=== PATIENT | female | born 1945 | race Caucasian/White ===

== ENCOUNTER 2018-10-08 15:36 | Emergency (ER) | payer BC, MEDICARE ==
[~2018-10-08] VITALS: Ht 167.6 cm; Wt 95.9 kg
[2018-10-08] MEDS ORDERED: PANT40TA3 PO (16:03)
[2018-10-08] MEDS ORDERED: GLIM2TAB29 PO (16:03)
[2018-10-08] MEDS ORDERED: ATOR1TAB21 PO (16:03)
[2018-10-08] MEDS ORDERED: WARF4TAB51 PO (16:03)
[2018-10-08] MEDS ORDERED: GLIM2TAB PO (16:03)
[2018-10-08] MEDS ORDERED: ROPI0.5T PO (16:03)
[2018-10-08] MEDS ORDERED: ALLO100T PO (16:03)
[2018-10-08] MEDS ORDERED: TRIM100T8 PO (16:03)
[2018-10-08] MEDS ORDERED: VENL75TA2 PO (16:03)
[2018-10-08] MEDS ORDERED: BUPR150T5 PO (16:03)
[2018-10-08] MEDS ORDERED: ATEN50TA2 PO (16:03)
[2018-10-08] MEDS ORDERED: VESI10TA2 PO (16:03)
[2018-10-08] MEDS ORDERED: LETR2.5T2 PO (16:03)
[2018-10-08] MEDS ORDERED: COUM2TAB22 PO (16:05)
[2018-10-08] MEDS ORDERED: VITAD1000T PO (16:05)
[2018-10-08] MEDS ORDERED: [UNRECOGNIZED DRUG - CODE] PO (16:05)
[2018-10-08] MEDS ORDERED: ZYRTTAB8 PO (16:05)
--- NOTE | 2018-10-08 16:12 | REP ---
CT Head without contrast HISTORY: Fall COMPARISON: None Areas of decreased attenuation are present in the periventricular white matter. This represents small-vessel ischemic disease. here is no intraparenchymal hemorrhage, acute infarct, mass or midline shift. The ventricular system is normal in appearance. The cortical sulci are dilated consistent with minimal volume loss. There is no extra cerebral collection. There is no fracture. Minimal mucosal thickening is present in the left sphenoid sinus. A subgaleal hematoma is present overlying the frontal bones. IMPRESSION: 1. Small vessel ischemic disease. 2. Minimal volume loss. Electronically Signed by Kristopher Pradhan MD 10/08/2018 04:04 P
--- NOTE | 2018-10-08 16:25 | REP ---
CT cervical spine without contrast HISTORY: Fall COMPARISON: None There is no acute fracture. A disc bulge is present at the C4-5 level. A disc bulge with associated osteophyte formation is present at the C5-6 level. There is minimal narrowing of the spinal canal. Uncinate process and/or facet hypertrophy are present at the C2-3 through C6-7 levels. These findings produce minimal to mild narrowing of the neural foramina. There are 2 mm of anterior subluxation of C3-4. The C3-4 through C7-T1 intervertebral discs are decreased in height consistent with disc degeneration. IMPRESSION: 1. There is no acute fracture. 2. There is cervical spondylosis at the C2-3 through C7-T1 levels. Electronically Signed by Kristopher Pradhan MD 10/08/2018 04:17 P
--- NOTE | 2018-10-08 17:12 | REP ---
Chest one-view HISTORY: Injury Comparison: None The lungs are clear. The heart is normal in size. The pulmonary vasculature is normal in appearance. An Afsmbw-[id number]-Wmvl catheter is present. Impression: No acute disease. Electronically Signed by Kristopher Pradhan MD 10/08/2018 05:03 P
--- NOTE | 2018-10-08 17:13 | REP ---
Left elbow for views History: Injury The patient is status post radial humeral arthroplasty . The patient is status post ORIF of a fracture of the proximal ulna. Metal hardware is present. There is an acute nondisplaced fracture of the distal humerus. There is no dislocation. Impression: Nondisplaced fracture of the distal humerus. Electronically Signed by Kristopher Pradhan MD 10/08/2018 05:04 P
[2018-10-08 17:25] LABS: BASO % 0.3 % (0.0-1.0); EOS # 0.2 10^3/uL (0.0-0.50); EOS % 1.7 % (0.0-3.0); HEMATOCRIT 38.6 % (36.0-47.0); HEMOGLOBIN 12.3 g/dl (12.0-15.5); LYMPH # 1.7 10^3/uL (1.5-4.5); LYMPH % 12.8 % (24.0-44.0); MEAN CORPUSCULAR HEMOGLOBIN 29.6 pg (27.0-33.0); MEAN CORPUSCULAR HGB CONC 31.9 g/dl (32.0-36.5); MONO # 0.6 10^3/uL (0.0-0.8); MONO % 4.8 % (0.0-5.0); NEUTROPHILS # 10.7 10^3/uL (1.8-7.7); PLATELET COUNT, AUTOMATED 276 10^3/uL (150-450); RED BLOOD COUNT 4.15 10^6/uL (4.00-5.40); WHITE BLOOD COUNT 13.3 10^3/uL (4.0-10.0)
[2018-10-08] MEDS ORDERED: MORPHINE 2 MG/ML 1ML SYRINGE (J2270) IV ONE ×2 (17:30→18:45)
[2018-10-08 17:34] LABS: INR 1.99
[2018-10-08 17:35] LABS: PARTIAL THROMBOPLASTIN TIME 28.6 SECONDS (25.4-37.6)
[2018-10-08] MEDS ORDERED: ONDANSETRON 4MG/2ML VIAL (J2405) IV ONE (17:45)
[2018-10-08 18:16] LABS: BLOOD UREA NITROGEN 44 MG/DL (7-18); CALCIUM LEVEL 9.5 MG/DL (8.8-10.2); CARBON DIOXIDE LEVEL 30 MEQ/L (21-32); CHLORIDE LEVEL 106 MEQ/L (98-107); CREATININE FOR GFR 1.45 MG/DL (0.55-1.30); GLOMERULAR FILTRATION RATE 37.7 (>39); GLUCOSE, FASTING 153 MG/DL (70-100); POTASSIUM SERUM 4.5 MEQ/L (3.5-5.1); SODIUM LEVEL 142 MEQ/L (136-145)
[2018-10-08 18:42] LABS: ALBUMIN 3.5 GM/DL (3.2-5.2); ALT/SGPT 28 U/L (12-78); BILIRUBIN,DIRECT < 0.1 MG/DL (0.0-0.2); BILIRUBIN,TOTAL 0.3 MG/DL (0.2-1.0); TOTAL PROTEIN 6.9 GM/DL (6.4-8.2)
--- NOTE | 2018-10-08 18:42 | REP ---
LEFT KNEE: Four views of the left knee were performed and demonstrate no fracture or dislocation. There is a total knee prosthesis in good position with no abnormal adjacent lucency. IMPRESSION: No acute fracture or dislocation. Electronically Signed by Lemuel Balbuena MD 10/08/2018 07:59 P
[2018-10-08] MEDS ORDERED: PERC5TAB12 PO ×2 (19:40→20:10)
[2018-10-08] MEDS ORDERED: PERCOCET 5MG/325MG TAB PO ONE (19:45)
[2018-10-08] MEDS ORDERED: NORCO 5/325MG TABLET (BULK FOR ED) PO ONE (19:45)
--- NOTE | 2018-10-08 19:54 | REPVR ---
EXAM: CT Left Upper Extremity Without Contrast EXAM DATE/TIME: 10/08/2018 5:46 PM CLINICAL HISTORY: 72 years old, female; Injury or trauma; Fall; Initial encounter; Fracture, traumatic injury; Closed fracture; Humerus; Left; Prior surgery; Surgery date: 6+ months; Surgery type: Cadaver bone; Additional info: Fractured humerus on x-ray TECHNIQUE: Imaging protocol: CT of the Left upper extremity without intravenous contrast was performed. Coronal and sagittal reformatted images were created and reviewed. Radiation optimization: All CT scans at this facility use at least one of these dose optimization techniques: automated exposure control; mA and/or kV adjustment per patient size (includes targeted exams where dose is matched to clinical indication); or iterative reconstruction. COMPARISON: CR Elbow, complete LEFT 10/08/2018 4:31 PM FINDINGS: Bones/joints: There is a subcondylar fracture of the distal humerus, with displacement of fracture fragments. Postoperative changes are identified with internal fixation of the proximal ulna with a surgical prosthesis involving the proximal radius/radiocapitellar joint. Osteopenia. There is abnormal morphology and hyperostosis involving the proximal ulna and coronoid process, with an old fracture. There is cortical irregularity/spurring of the lateral epicondyle. Streaking artifact from surgical hardware significantly limits this study. Soft tissues: CT is suboptimal for evaluation of ligaments and tendons. Soft tissue swelling is visualized, most significant posterior to the distal humerus. IMPRESSION: 1. There is a subcondylar fracture of the distal humerus, with displacement of fracture fragments. 2. Postoperative changes noted above. 3. There is abnormal morphology and hyperostosis involving the proximal ulna and coronoid process, with an old fracture. 4. Soft tissue swelling is visualized, most significant posterior to the distal humerus. 5. Additional findings described above. Electronically signed by: Juan Espinal On 10/08/2018 19:54:00 PM
--- NOTE | 2018-10-08 20:08 | ER ---
DATE OF CONSULTATION: 10/08/2018 CONSULTING PHYSICIAN: Dr. Lucie Balbuena REASON FOR CONSULTATION: Left distal humerus fracture. CHIEF COMPLAINT: Left elbow pain. HISTORY OF PRESENT ILLNESS: Mary Begum is a 72-year-old bozev-ckdw-yminjlit female who sustained a mechanical fall to an outstretched left upper extremity earlier today resulting in immediate left elbow pain and inability to move her elbow. She also fell onto her face resulting in a scalp hematoma and some orbital swelling. She had radiographs that demonstrated a distal humerus fracture around previous hardware on the elbow and orthopedics was consulted for definitive management. The patient localized pain to the left elbow. She denied any numbness, tingling or burning sensations about the left upper extremity and had no other acute complaints. PAST MEDICAL HISTORY: Significant for deep vein thrombosis (DVT), pulmonary embolism (PE), hypertension, gout, gastroesophageal reflux disease (GERD), mood disorder, diabetes. MEDICATIONS: Allopurinol, vitamin C supplementation, atenolol, atorvastatin, bupropion, cetirizine, glimepiride, letrozole, pantoprazole, allopurinol, VESIcare, venlafaxine, vitamin D, trimethoprim and Coumadin. ALLERGIES: SULFA. PAST SURGICAL HISTORY: Significant for bilateral knee replacement, was significant for left elbow ulna open reduction internal fixation (ORIF) and radial head replacement 8 years ago. She also had a left distal radius open reduction internal fixation. She also had prior hysterectomy for uterine cancer. FAMILY HISTORY: Noncontributory. SOCIAL HISTORY: The patient lives with in [place], [place]. She does not smoke, drink, or use illicit drugs. REVIEW OF SYSTEMS: A 14-point review of systems was reviewed and is unremarkable. PHYSICAL EXAMINATION: Vital signs: Temperature 97, heart rate 104, respiratory rate 18, blood pressure 175/75, oxygen saturation 99% on room air. General: Overweight female, appears stated age, in no acute distress. HEENT: She had evidence of a small scalp laceration and a scalp hematoma with swelling around the orbit, no visual disturbances. Cardiovascular: She has a regular rate and rhythm and 2+ radial pulse, brisk capillary refill all digits left upper extremity. Respiratory: Nonlabored breathing. Neurologic: She is awake, alert and oriented to person, place and time. She had intact sensory and motor function in her left upper extremity radial, median, ulnar, anterior interosseous nerve (AIN) and posterior interosseous nerve (PIN) distributions. Musculoskeletal: Focused physical exam of the left elbow demonstrates no open wounds or abrasions. She is maximally tender about the distal humerus. She has no tenderness about the wrist, forearm or shoulder. She is able to independently flex and extend at the wrist and all digits of the left upper extremity, voluntary elbow motion is limited secondary to pain. RADIOGRAPHS: Plain radiographs and CT scan of the left elbow demonstrate previous ulnar ORIF and radial head replacement hardware that appear to be intact. There is what appears to be an extra-articular distal humerus fracture with displacement. CT scan 2D and 3-D reconstruction images were limited to evaluate for intra-articular extension secondary to metal artifact from prior implants. ASSESSMENT: This is a 72-year-old female with significant prior surgical history of proximal ulna and ORIF and radial head replacement with a displaced distal humerus fracture that is closed. PLAN: I discussed with the patient the nature of her injury; this likely will require open reduction internal fixation. However, given this is a closed injury, she has an INR of 2, may require risk stratification prior to surgery, and the patient has an established relationship with an orthopedic surgeon in [place]. The patient desires to follow up with her surgeon in [place] for definitive management. She was placed into a well-padded posterior splint and provided with her imaging. She will follow up this week as an outpatient with her established surgeon in [place], but she may follow up with us on an as needed basis for definitive management. The patient expressed understanding and agreed with the plan. All questions were answered. ANNA
[2018-10-08 20:14] VITALS: BP 172/98
--- NOTE | 2018-10-09 00:11 | ECGEPIP ---
Stationary ECG Study [facility] - ED Test Date: 2018-10-08 Pat Name: OLIVIER CARTER Department: Room: - Gender: F Legal Services Professional: lisbeth : 1945 Requested By: Lucie Santillan Order Number: [id number] Reading MD: Marvel Galindo Measurements Intervals [place] Rate: 104 P: 53 RI: 211 QRS: 12 QRSD: 93 T: 55 QT: 358 QTc: 471 Interpretive Statements SINUS TACHYCARDIA WITH FIRST DEGREE AV BLOCK Delayed anterior R wave progression Comparison tracing not on file Electronically Signed On 10-09-2018 0:11:02 EDT by Marvel Galindo
== END 2018-10-08 20:16 | disposition home or self-care (01) ==
LOC: EDBD 15:36 → M ED 15:36
DX: S09.90XA Unspecified injury of head, initial encounter (principal); S42.412A Displaced simple supracondylar fracture without intercondylar fracture of left humerus, initial encounter for closed fracture; M47.812 Spondylosis without myelopathy or radiculopathy, cervical region; W18.49XA Other slipping, tripping and stumbling without falling, initial encounter; Y92.512 Supermarket, store or market as the place of occurrence of the external cause; Y93.9 Activity, unspecified; Y99.9 Unspecified external cause status; R00.0 Tachycardia, unspecified; I44.0 Atrioventricular block, first degree; Z79.01 Long term (current) use of anticoagulants; Z79.84 Long term (current) use of oral hypoglycemic drugs; Z79.899 Other long term (current) drug therapy; Z91.018 Allergy to other foods; Z91.013 Allergy to seafood; Z88.2 Allergy status to sulfonamides; Z86.711 Personal history of pulmonary embolism; Z86.718 Personal history of other venous thrombosis and embolism; I10 Essential (primary) hypertension; M10.9 Gout, unspecified; K21.9 Gastro-esophageal reflux disease without esophagitis; E11.9 Type 2 diabetes mellitus without complications; F39 Unspecified mood [affective] disorder; Z96.653 Presence of artificial knee joint, bilateral
CPT/HCPCS: 24505; 70450; 71045; 72125; 73080; 73200; 73564; 80048; 80076; 85025; 85610; 85730; 86850; 86900; 86901; 93005; 96374; 96375; 96376; 99284; J2270; J2405

== ENCOUNTER 2018-12-10 17:34 | Emergency (ER) | payer MEDICARE ==
[~2018-12-10] VITALS: Ht 160 cm; Wt 99.4 kg
[~2018-12-10 17:34] MED LIST: ALLO100T PO; ATEN50TA2 PO; ATOR1TAB21 PO; BUPR150T5 PO; COUM2TAB22 PO; GLIM2TAB PO; GLIM2TAB29 PO; LETR2.5T2 PO; PANT40TA3 PO; PERC5TAB12 PO; ROPI0.5T PO; TRIM100T8 PO; VENL75TA2 PO; VESI10TA2 PO; VITAD1000T PO; WARF4TAB51 PO; ZYRTTAB8 PO; [UNRECOGNIZED DRUG - CODE] PO
[2018-12-10 20:30] VITALS: BP 130/84
== END 2018-12-10 20:33 | disposition home or self-care (01) ==
LOC: M ED 17:34
DX: K13.79 Other lesions of oral mucosa (principal); E11.9 Type 2 diabetes mellitus without complications; E78.9 Disorder of lipoprotein metabolism, unspecified; Z86.718 Personal history of other venous thrombosis and embolism; Z79.01 Long term (current) use of anticoagulants

== ENCOUNTER → 2019-11-15 | Outpatient (REF) | payer MEDICARE ==
[~2019-11-15] MED LIST changes: +CHOL100029 PO; -GLIM2TAB PO; +GLIM2TAB4 PO; -ROPI0.5T PO; +ROPI0.5T3 PO; -VITAD1000T PO
[2019-11-15 17:10] LABS: APPEARANCE, URINE HAZY (CLEAR); BACTERIA, URINE AUTO NEGATIVE (NEGATIVE); BILIRUBIN, URINE AUTO NEGATIVE (NEGATIVE); BLOOD, URINE BLOOD NEGATIVE (NEGATIVE); COLOR, URINE YELLOW (YELLOW); GLUCOSE, URINE (UA) AUTO 3+ mg/dL (NEGATIVE); KETONE, URINE AUTO NEGATIVE (NEGATIVE); LEUKOCYTE ESTERASE, URINE AUTO TRACE (NEGATIVE); MUCUS, URINE SMALL (NEGATIVE); NITRITE, URINE AUTO NEGATIVE (NEGATIVE); PROTEIN, URINE AUTO 1+ mg/dL (NEGATIVE); RBC, URINE AUTO 0 /HPF (0-3); SPECIFIC GRAVITY URINE AUTO 1.017 (1.002-1.035); SQUAMOUS EPITHELIAL CELL UR AU 3 /HPF (0-6); UROBILINOGEN, URINE AUTO 0.2 mg/dL (0.0-2.0); WBC, URINE AUTO 3 /HPF (0-3)
== END ==
LOC: M LABDRAWC 15:55
PROVIDERS: ATTEND Obstetrics & Gynecology Gynecologic Oncology
DX: N39.0 Urinary tract infection, site not specified (principal)